=== PATIENT | male | born 1970 | race Caucasian/White ===

== ENCOUNTER 2020-06-21 01:00 | Inpatient (IN) | payer OTHER ==
[2020-06-20 23:45] VITALS: BP 132/90
[~2020-06-21] VITALS: Ht 188 cm; Wt 103.9 kg
[2020-06-21] VITALS: BP 132/90
[2020-06-21 04:01] VITALS: BP 131/92
[2020-06-21] MEDS: HYDROMORPHONE HCL/PF 2MG/ML CPJ IV PRN ×4 (04:55→22:37)
[2020-06-21] MEDS ORDERED: AMLO-375 MT (06:24)
[2020-06-21] MEDS ORDERED: ATOR10TA PO (06:24)
[2020-06-21] MEDS ORDERED: LEVO200T8 MT (06:24)
[2020-06-21 08:00] VITALS: BP 132/92
[2020-06-21] MEDS ORDERED: DOCUSATE SODIUM 250MG CAPSULE PO PRN (09:00)
[2020-06-21] MEDS: LEVOTHYROXINE SODIUM 200MCG TABLET PO SCH (09:24)
[2020-06-21] MEDS: AMLODIPINE 5MG TABLET PO SCH (09:25)
[2020-06-21] MEDS: ZINC SULFATE 220 MG ( 50 ) CAPSULE PO SCH (09:25)
[2020-06-21] MEDS: MULTIVITAMINS,THER W-MINERALS TABLET PO SCH (09:25)
[2020-06-21] MEDS: HYDROCODONE/ACETAMINOPHEN 10/325MG TABLET PO PRN ×2 (09:26→14:39)
[2020-06-21 11:53] LABS: HEMATOCRIT. 39.9 % (42.0-52.0); HEMOGLOBIN. 13.7 g/dL (14.0-18.0); MEAN CORPUSCULAR HEMOGLOBIN 30.7 pg (28.0-32.0); MEAN CORPUSCULAR VOLUME 89.4 fL (80.0-94.0); MEAN PLATELET VOLUME 8.4 fl (7.4-10.4); PLATELET 284 x1000/uL (130-400); RED BLOOD CELL COUNT 4.47 mill/uL (4.7-6.1); RED CELL DISTRIBUTION WIDTH 13.1 % (11.6-14.6)
[2020-06-21 12:00] VITALS: BP 140/84
[2020-06-21] MEDS: FAMOTIDINE 20MG TABLET PO SCH ×2 (12:01→18:09)
[2020-06-21 12:13] LABS: CHLORIDE 102 mEq/L (98-107)
[2020-06-21] MEDS ORDERED: CLONIDINE 0.1MG TABLET PO PRN (12:45)
[2020-06-21] MEDS ORDERED: NITROGLYCERIN 0.4MG TABLET SL SL PRN (12:45)
[2020-06-21] MEDS ORDERED: IPRATROPIUM/ALBUTEROL 0.5-3(2.5)MG/3ML NEB NEB PRN (12:45)
[2020-06-21] MEDS ORDERED: ENOXAPARIN 40MG/0.4ML SYR SUBCUT SCH (14:00)
[2020-06-21 16:00] VITALS: BP 142/94
[2020-06-21 18:28] LABS: PLATELET ESTIMATE NORMAL
[2020-06-21 20:00] VITALS: BP 137/72
[2020-06-21] MEDS ORDERED: ZOLPIDEM TARTRATE 5MG TABLET PO PRN (21:00)
[2020-06-21] MEDS: ASCORBIC ACID 500 MG TABLET PO SCH (21:25)
[2020-06-22] VITALS: BP 140/93
[2020-06-22] MEDS: HYDROCODONE/ACETAMINOPHEN 10/325MG TABLET PO PRN ×3 (01:17→18:57)
[2020-06-22] MEDS: HYDROMORPHONE HCL/PF 2MG/ML CPJ IV PRN ×5 (02:44→22:38)
[2020-06-22 04:00] VITALS: BP 152/85
[2020-06-22 06:44] LABS: HEMATOCRIT. 37.8 % (42.0-52.0); HEMOGLOBIN. 13.1 g/dL (14.0-18.0); MEAN CORPUSCULAR HEMOGLOBIN 30.9 pg (28.0-32.0); MEAN CORPUSCULAR VOLUME 89.2 fL (80.0-94.0); MEAN PLATELET VOLUME 8.2 fl (7.4-10.4); PLATELET 250 x1000/uL (130-400); RED BLOOD CELL COUNT 4.23 mill/uL (4.7-6.1); RED CELL DISTRIBUTION WIDTH 12.8 % (11.6-14.6)
[2020-06-22 07:07] LABS: CHLORIDE 100 mEq/L (98-107)
[2020-06-22 07:13] LABS: PHOSPHORUS 3.6 mg/dL (2.5-4.9)
[2020-06-22 08:00] VITALS: BP 142/92
[2020-06-22] MEDS: ATORVASTATIN CALCIUM 10MG TABLET PO SCH (08:06)
[2020-06-22] MEDS: FAMOTIDINE 20MG TABLET PO SCH ×2 (08:07→17:27)
[2020-06-22] MEDS: AMLODIPINE 5MG TABLET PO SCH (08:07)
[2020-06-22] MEDS: ZINC SULFATE 220 MG ( 50 ) CAPSULE PO SCH (08:07)
[2020-06-22] MEDS: MULTIVITAMINS,THER W-MINERALS TABLET PO SCH (08:08)
[2020-06-22] MEDS: LEVOTHYROXINE SODIUM 200MCG TABLET PO SCH (08:08)
[2020-06-22] MEDS: ASCORBIC ACID 500 MG TABLET PO SCH ×2 (08:08→21:54)
[2020-06-22] MEDS: DEXT 5%/0.45% NACL 1000ML 1,000 ML IV SCH (09:55)
[2020-06-22 14:11] LABS: PLATELET ESTIMATE NORMAL
[2020-06-22 20:00] VITALS: BP 141/87
[2020-06-22] MEDS: ACETAMINOPHEN 325MG TABLET PO PRN (22:38)
[2020-06-23] VITALS: BP 124/81
[2020-06-23] MEDS: HYDROCODONE/ACETAMINOPHEN 10/325MG TABLET PO PRN ×2 (00:41→06:43)
[2020-06-23 04:00] VITALS: BP 115/88
[2020-06-23] MEDS: HYDROMORPHONE HCL/PF 2MG/ML CPJ IV PRN ×4 (04:22→21:09)
[2020-06-23 08:00] VITALS: BP 144/98
[2020-06-23] MEDS: MULTIVITAMINS,THER W-MINERALS TABLET PO SCH (10:33)
[2020-06-23] MEDS: AMLODIPINE 5MG TABLET PO SCH (10:33)
[2020-06-23] MEDS: ASCORBIC ACID 500 MG TABLET PO SCH ×2 (10:33→20:53)
[2020-06-23] MEDS: ZINC SULFATE 220 MG ( 50 ) CAPSULE PO SCH (10:33)
[2020-06-23] MEDS: FAMOTIDINE 20MG TABLET PO SCH ×2 (10:33→16:17)
[2020-06-23 15:22] VITALS: BP 121/65
[2020-06-23] MEDS: LEVOTHYROXINE SODIUM 200MCG TABLET PO SCH (16:15)
[2020-06-23 20:00] VITALS: BP 120/81
[2020-06-23] MEDS: ACETAMINOPHEN 325MG TABLET PO PRN (21:08)
[2020-06-24] VITALS: BP 119/80
[2020-06-24] MEDS: HYDROCODONE/ACETAMINOPHEN 10/325MG TABLET PO PRN ×3 (00:18→22:45)
[2020-06-24 04:00] VITALS: BP 140/93
[2020-06-24] MEDS: HYDROMORPHONE HCL/PF 2MG/ML CPJ IV PRN ×3 (05:40→21:13)
[2020-06-24 08:00] VITALS: BP 122/87
[2020-06-24] MEDS ORDERED: LIDOCAINE HCL/EPINEPHRINE 1%-EPI 1:100,000 20 ML VIAL ONE (08:47)
[2020-06-24] MEDS ORDERED: BACITRACIN 50,000 UNITS/VIAL ONE (08:47)
[2020-06-24] MEDS ORDERED: VANCOMYCIN HCL 1 GM/VIAL ONE (08:47)
[2020-06-24] MEDS: AMLODIPINE 5MG TABLET PO SCH (09:03)
[2020-06-24] MEDS: LEVOTHYROXINE SODIUM 200MCG TABLET PO SCH (09:03)
[2020-06-24] MEDS: MULTIVITAMINS,THER W-MINERALS TABLET PO SCH (09:03)
[2020-06-24] MEDS: ATORVASTATIN CALCIUM 10MG TABLET PO SCH (09:03)
[2020-06-24] MEDS: FAMOTIDINE 20MG TABLET PO SCH ×2 (09:03→16:50)
[2020-06-24] MEDS: ZINC SULFATE 220 MG ( 50 ) CAPSULE PO SCH (09:04)
[2020-06-24] MEDS: DEXT 5%/0.45% NACL 1000ML 1,000 ML IV SCH (09:06)
[2020-06-24] MEDS: ASCORBIC ACID 500 MG TABLET PO SCH ×2 (09:11→22:45)
[2020-06-24] MEDS ORDERED: ROCURONIUM BROMIDE 10MG/ML VIAL 5ML IV ONE (09:14)
[2020-06-24] MEDS ORDERED: GLYCOPYRROLATE 0.2 MG/ML 2ML VIAL ONE (09:14)
[2020-06-24] MEDS ORDERED: SUCCINYLCHOLINE CHLORIDE 200MG/10ML IV ONE (09:14)
[2020-06-24] MEDS ORDERED: PROPOFOL 200MG/20ML VIAL IV ONE (09:14)
[2020-06-24] MEDS ORDERED: ONDANSETRON HCL 4MG/2ML INJ ONE (09:14)
[2020-06-24] MEDS ORDERED: FENTANYL CITRATE/PF 50MCG/ML 2ML VIAL ONE ×2 (09:14→13:14)
[2020-06-24] MEDS ORDERED: MIDAZOLAM HCL 2 MG/2 ML VIAL ONE (09:14)
[2020-06-24] MEDS ORDERED: EPHEDRINE SULFATE 50MG/ML VIAL ONE (09:14)
[2020-06-24] MEDS ORDERED: METOCLOPRAMIDE HCL 10MG/2ML VIAL ONE (09:14)
[2020-06-24] MEDS ORDERED: NEOSTIGMINE METHYLSULFATE 1MG/ML 10 ML VIAL ONE (09:14)
[2020-06-24] MEDS ORDERED: PHENYLEPHRINE HCL 10 MG/ML 1ML (IV VIAL) IV ONE ×2 (09:14→11:08)
[2020-06-24] MEDS ORDERED: CEFAZOLIN SODIUM 1000MG/VIAL ONE (09:14)
[2020-06-24] MEDS ORDERED: SODIUM CHLORIDE 0.9% 10ML VIAL ONE (09:14)
[2020-06-24] MEDS ORDERED: ALBUMIN HUMAN 12.5G/250ML (5%) IV ONE (11:09)
[2020-06-24] MEDS ORDERED: CEFAZOLIN 1000MG PREMIX 50 ML IV SCH (14:00)
[2020-06-24] MEDS ORDERED: ROPIVACAINE HCL 10MG/ML 20 ML VIAL EPI ONE (15:29)
[2020-06-24 16:00] VITALS: BP 106/70
[2020-06-24] MEDS: ERGOCALCIFEROL 50000UNITS CAPSULE PO SCH (17:46)
[2020-06-24] MEDS ORDERED: THROAT LOZENGES-BENZOCAINE/MENTH/CETYLPYRD CL LOZENGES MM PRN (18:00)
[2020-06-24 20:00] VITALS: BP 120/90
[2020-06-24] MEDS: CEFAZOLIN 1000MG PREMIX 50 ML IV SCH (21:10)
[2020-06-24 23:08] LABS: BASOPHILS % 0.4 % (0.0-2.0); EOSINOPHILS % 0.1 % (0.0-5.0); HEMATOCRIT. 32.6 % (42.0-52.0); HEMOGLOBIN. 11.4 g/dL (14.0-18.0); LYMPHOCYTES % 23.3 % (20.0-50.0); MEAN CORPUSCULAR HEMOGLOBIN 31.1 pg (28.0-32.0); MEAN CORPUSCULAR VOLUME 88.8 fL (80.0-94.0); MEAN PLATELET VOLUME 8.2 fl (7.4-10.4); NEUTROPHILS % 67.2 % (40.0-76.0); PLATELET 179 x1000/uL (130-400); RED BLOOD CELL COUNT 3.67 mill/uL (4.7-6.1); RED CELL DISTRIBUTION WIDTH 12.9 % (11.6-14.6)
[2020-06-24 23:11] LABS: CHLORIDE 106 mEq/L (98-107)
[2020-06-25] VITALS: BP 113/71
[2020-06-25] MEDS: HYDROMORPHONE HCL/PF 2MG/ML CPJ IV PRN ×6 (01:19→23:03)
[2020-06-25 04:00] VITALS: BP 126/79
[2020-06-25] MEDS: CEFAZOLIN 1000MG PREMIX 50 ML IV SCH ×3 (05:36→21:52)
[2020-06-25] MEDS: DEXT 5%/0.45% NACL 1000ML 1,000 ML IV SCH ×2 (07:01→17:50)
[2020-06-25] MEDS: HYDROCODONE/ACETAMINOPHEN 10/325MG TABLET PO PRN (07:01)
[2020-06-25 08:00] VITALS: BP 117/81
[2020-06-25] MEDS: FAMOTIDINE 20MG TABLET PO SCH ×2 (09:00→17:50)
[2020-06-25 09:04] LABS: BASOPHILS % 0.4 % (0.0-2.0); HEMATOCRIT. 34.7 % (42.0-52.0); HEMOGLOBIN. 11.9 g/dL (14.0-18.0); MEAN CORPUSCULAR HEMOGLOBIN 30.4 pg (28.0-32.0); MEAN CORPUSCULAR VOLUME 88.4 fL (80.0-94.0); MEAN PLATELET VOLUME 8.6 fl (7.4-10.4); MONOCYTES % 9.5 % (2.0-8.0); NEUTROPHILS % 64.1 % (40.0-76.0); PLATELET 188 x1000/uL (130-400); RED BLOOD CELL COUNT 3.92 mill/uL (4.7-6.1); RED CELL DISTRIBUTION WIDTH 12.8 % (11.6-14.6)
[2020-06-25 09:12] LABS: CHLORIDE 98 mEq/L (98-107)
[2020-06-25 09:33] LABS: CREATINE KINASE 1224 IU/L (39-308)
[2020-06-25] MEDS: ASCORBIC ACID 500 MG TABLET PO SCH ×2 (09:41→09:52)
[2020-06-25] MEDS: ZINC SULFATE 220 MG ( 50 ) CAPSULE PO SCH (09:41)
[2020-06-25] MEDS: LEVOTHYROXINE SODIUM 200MCG TABLET PO SCH (09:41)
[2020-06-25] MEDS: MULTIVITAMINS,THER W-MINERALS TABLET PO SCH (09:41)
[2020-06-25] MEDS: AMLODIPINE 5MG TABLET PO SCH (09:41)
[2020-06-25 16:00] VITALS: BP 141/90
[2020-06-25] MEDS: DOCUSATE SODIUM 100MG CAPSULE PO PRN (17:50)
[2020-06-25 20:00] VITALS: BP 137/84
[2020-06-25] MEDS: ACETAMINOPHEN 325MG TABLET PO PRN (22:04)
[2020-06-25] MEDS: MAGNESIUM/ALUMINUM HYDROXIDE/SIMETHICONE 30ML UDC PO PRN (23:03)
[2020-06-26] VITALS: BP 116/65
[2020-06-26] MEDS: DEXT 5%/0.45% NACL 1000ML 1,000 ML IV SCH ×3 (01:37→23:28)
[2020-06-26] MEDS: HYDROCODONE/ACETAMINOPHEN 10/325MG TABLET PO PRN ×3 (01:40→22:14)
[2020-06-26] MEDS: CEFAZOLIN 1000MG PREMIX 50 ML IV SCH ×3 (06:53→23:27)
[2020-06-26 07:55] VITALS: BP 117/74
[2020-06-26] MEDS: MULTIVITAMINS,THER W-MINERALS TABLET PO SCH (08:32)
[2020-06-26] MEDS: ASCORBIC ACID 500 MG TABLET PO SCH ×2 (08:32→22:13)
[2020-06-26] MEDS: ATORVASTATIN CALCIUM 10MG TABLET PO SCH (08:32)
[2020-06-26] MEDS: LEVOTHYROXINE SODIUM 200MCG TABLET PO SCH (08:32)
[2020-06-26] MEDS: ZINC SULFATE 220 MG ( 50 ) CAPSULE PO SCH (08:32)
[2020-06-26] MEDS: AMLODIPINE 5MG TABLET PO SCH (08:32)
[2020-06-26] MEDS: DOCUSATE SODIUM 100MG CAPSULE PO PRN (08:38)
[2020-06-26] MEDS: FAMOTIDINE 20MG TABLET PO SCH ×2 (10:13→17:28)
[2020-06-26 12:00] VITALS: BP 128/78
[2020-06-26] MEDS: ONDANSETRON HCL 4MG/2ML INJ IV PRN ×2 (12:27→18:18)
[2020-06-26 16:00] VITALS: BP 129/70
[2020-06-26] MEDS: MORPHINE SULFATE 4 MG/ML CPJ (NOT FOR IM USE) IV PRN (18:34)
[2020-06-26 20:14] VITALS: BP 124/81
[2020-06-26] MEDS: ACETAMINOPHEN 325MG TABLET PO PRN (22:13)
[2020-06-26 23:45] VITALS: BP 140/81
[2020-06-27 04:00] VITALS: BP 137/72
[2020-06-27] MEDS: ACETAMINOPHEN 325MG TABLET PO PRN ×3 (05:24→22:59)
[2020-06-27] MEDS: HYDROCODONE/ACETAMINOPHEN 10/325MG TABLET PO PRN ×3 (05:34→20:50)
[2020-06-27 08:00] VITALS: BP 134/85
[2020-06-27] MEDS: ASCORBIC ACID 500 MG TABLET PO SCH ×2 (08:59→20:56)
[2020-06-27] MEDS: LEVOTHYROXINE SODIUM 200MCG TABLET PO SCH (08:59)
[2020-06-27] MEDS: ZINC SULFATE 220 MG ( 50 ) CAPSULE PO SCH (08:59)
[2020-06-27] MEDS: MULTIVITAMINS,THER W-MINERALS TABLET PO SCH (08:59)
[2020-06-27] MEDS: DEXT 5%/0.45% NACL 1000ML 1,000 ML IV SCH ×2 (09:00→23:00)
[2020-06-27] MEDS: AMLODIPINE 5MG TABLET PO SCH (09:00)
[2020-06-27] MEDS: FAMOTIDINE 20MG TABLET PO SCH ×2 (09:00→17:37)
[2020-06-27 12:00] VITALS: BP 103/63
[2020-06-27] MEDS: ONDANSETRON HCL 4MG/2ML INJ IV PRN (12:25)
[2020-06-27] MEDS: MORPHINE SULFATE 4 MG/ML CPJ (NOT FOR IM USE) IV PRN ×2 (15:47→22:59)
[2020-06-27 16:00] VITALS: BP 122/72
[2020-06-27 20:00] VITALS: BP 107/71
[2020-06-27 22:50] VITALS: BP 112/70
[2020-06-28 04:00] VITALS: BP 100/62
[2020-06-28] MEDS: MORPHINE SULFATE 4 MG/ML CPJ (NOT FOR IM USE) IV PRN ×2 (05:16→16:28)
[2020-06-28] MEDS: ACETAMINOPHEN 325MG TABLET PO PRN ×4 (05:27→20:18)
[2020-06-28 08:00] VITALS: BP 124/80
[2020-06-28] MEDS: AMLODIPINE 5MG TABLET PO SCH (09:27)
[2020-06-28] MEDS: FAMOTIDINE 20MG TABLET PO SCH ×2 (09:28→16:28)
[2020-06-28] MEDS: MULTIVITAMINS,THER W-MINERALS TABLET PO SCH (09:28)
[2020-06-28] MEDS: ATORVASTATIN CALCIUM 10MG TABLET PO SCH (09:28)
[2020-06-28] MEDS: ASCORBIC ACID 500 MG TABLET PO SCH ×2 (09:28→20:18)
[2020-06-28] MEDS: LEVOTHYROXINE SODIUM 200MCG TABLET PO SCH (09:28)
[2020-06-28] MEDS: ZINC SULFATE 220 MG ( 50 ) CAPSULE PO SCH (09:29)
[2020-06-28] MEDS: HYDROCODONE/ACETAMINOPHEN 10/325MG TABLET PO PRN ×2 (09:54→20:24)
[2020-06-28] MEDS: ONDANSETRON HCL 4MG/2ML INJ IV PRN ×2 (09:55→16:28)
[2020-06-28 12:00] VITALS: BP 121/68
[2020-06-28 16:00] VITALS: BP 131/78
[2020-06-28 20:00] VITALS: BP 124/73
[2020-06-28] MEDS: GUAIFENESIN 200MG/10ML SUGAR FREE UDC PO PRN (20:17)
[2020-06-29] VITALS: BP 113/73
[2020-06-29] MEDS: MORPHINE SULFATE 2 MG/ML CPJ (NOT FOR IM USE) IV PRN ×3 (00:57→21:34)
[2020-06-29 04:00] VITALS: BP 101/74
[2020-06-29] MEDS: ONDANSETRON HCL 4MG/2ML INJ IV PRN ×2 (05:25→18:01)
[2020-06-29] MEDS: ACETAMINOPHEN 325MG TABLET PO PRN ×2 (05:26→21:26)
[2020-06-29 06:30] LABS: BASOPHILS % 0.4 % (0.0-2.0); HEMATOCRIT. 33.9 % (42.0-52.0); HEMOGLOBIN. 11.8 g/dL (14.0-18.0); LYMPHOCYTES % 44.2 % (20.0-50.0); MEAN CORPUSCULAR HEMOGLOBIN 30.4 pg (28.0-32.0); MEAN CORPUSCULAR VOLUME 87.6 fL (80.0-94.0); MEAN PLATELET VOLUME 8.1 fl (7.4-10.4); MONOCYTES % 5.7 % (2.0-8.0); NEUTROPHILS % 49.7 % (40.0-76.0); PLATELET 190 x1000/uL (130-400); RED BLOOD CELL COUNT 3.87 mill/uL (4.7-6.1); RED CELL DISTRIBUTION WIDTH 12.8 % (11.6-14.6)
[2020-06-29 06:43] LABS: CHLORIDE 99 mEq/L (98-107)
[2020-06-29 06:53] LABS: CREATINE KINASE 384 IU/L (39-308)
[2020-06-29 08:00] VITALS: BP 129/80
[2020-06-29] MEDS: HYDROCODONE/ACETAMINOPHEN 10/325MG TABLET PO PRN ×2 (10:14→18:01)
[2020-06-29] MEDS: ZINC SULFATE 220 MG ( 50 ) CAPSULE PO SCH (10:15)
[2020-06-29] MEDS: LEVOTHYROXINE SODIUM 200MCG TABLET PO SCH (10:15)
[2020-06-29] MEDS: MULTIVITAMINS,THER W-MINERALS TABLET PO SCH (10:15)
[2020-06-29] MEDS: AMLODIPINE 5MG TABLET PO SCH (10:15)
[2020-06-29] MEDS: FAMOTIDINE 20MG TABLET PO SCH ×2 (10:16→18:00)
[2020-06-29] MEDS: ASCORBIC ACID 500 MG TABLET PO SCH ×2 (10:16→21:19)
[2020-06-29 12:00] VITALS: BP 118/76
[2020-06-29 16:00] VITALS: BP 113/73
[2020-06-29 20:00] VITALS: BP 121/68
[2020-06-30] VITALS: BP 106/66
[2020-06-30] MEDS: HYDROCODONE/ACETAMINOPHEN 10/325MG TABLET PO PRN ×3 (00:07→18:13)
[2020-06-30 04:00] VITALS: BP 112/70
[2020-06-30] MEDS: MORPHINE SULFATE 2 MG/ML CPJ (NOT FOR IM USE) IV PRN ×3 (05:07→21:17)
[2020-06-30] MEDS: ACETAMINOPHEN 325MG TABLET PO PRN (05:20)
[2020-06-30 08:00] VITALS: BP 123/74
[2020-06-30] MEDS: ASCORBIC ACID 500 MG TABLET PO SCH ×2 (09:20→20:46)
[2020-06-30] MEDS: ZINC SULFATE 220 MG ( 50 ) CAPSULE PO SCH (09:20)
[2020-06-30] MEDS: FAMOTIDINE 20MG TABLET PO SCH ×2 (09:20→18:13)
[2020-06-30] MEDS: LEVOTHYROXINE SODIUM 200MCG TABLET PO SCH (09:20)
[2020-06-30] MEDS: AMLODIPINE 5MG TABLET PO SCH (09:20)
[2020-06-30] MEDS: ATORVASTATIN CALCIUM 10MG TABLET PO SCH (09:21)
[2020-06-30] MEDS: MULTIVITAMINS,THER W-MINERALS TABLET PO SCH (09:21)
[2020-06-30 12:00] VITALS: BP 114/76
[2020-06-30 16:00] VITALS: BP 132/79
[2020-06-30] MEDS: ONDANSETRON HCL 4MG/2ML INJ IV PRN (18:13)
[2020-07-01 00:30] VITALS: BP 115/74
[2020-07-01] MEDS: HYDROCODONE/ACETAMINOPHEN 10/325MG TABLET PO PRN (01:19)
[2020-07-01] MEDS: ACETAMINOPHEN 325MG TABLET PO PRN (01:19)
[2020-07-01 08:00] VITALS: BP 127/77
[2020-07-01] MEDS: ZINC SULFATE 220 MG ( 50 ) CAPSULE PO SCH (10:19)
[2020-07-01] MEDS: ERGOCALCIFEROL 50000UNITS CAPSULE PO SCH (10:19)
[2020-07-01] MEDS: ASCORBIC ACID 500 MG TABLET PO SCH ×2 (10:19→20:34)
[2020-07-01] MEDS: FAMOTIDINE 20MG TABLET PO SCH ×2 (10:19→20:34)
[2020-07-01] MEDS: LEVOTHYROXINE SODIUM 200MCG TABLET PO SCH (10:19)
[2020-07-01] MEDS: MULTIVITAMINS,THER W-MINERALS TABLET PO SCH (10:19)
[2020-07-01] MEDS: AMLODIPINE 5MG TABLET PO SCH (10:24)
[2020-07-01 12:00] VITALS: BP 128/76
[2020-07-01] MEDS: ONDANSETRON HCL 4MG/2ML INJ IV PRN ×2 (12:10→20:33)
[2020-07-01] MEDS: MAGNESIUM/ALUMINUM HYDROXIDE/SIMETHICONE 30ML UDC PO PRN (14:43)
[2020-07-01 16:00] VITALS: BP 113/81
[2020-07-02] VITALS: BP 120/75
[2020-07-02 07:36] LABS: BASOPHILS % 0.4 % (0.0-2.0); EOSINOPHILS % 0.1 % (0.0-5.0); HEMATOCRIT. 35.5 % (42.0-52.0); LYMPHOCYTES % 36.7 % (20.0-50.0); MEAN CORPUSCULAR VOLUME 88.5 fL (80.0-94.0); MEAN PLATELET VOLUME 7.3 fl (7.4-10.4); MONOCYTES % 9.6 % (2.0-8.0); NEUTROPHILS % 53.2 % (40.0-76.0); PLATELET 233 x1000/uL (130-400); RED BLOOD CELL COUNT 4.02 mill/uL (4.7-6.1)
[2020-07-02 07:47] LABS: CHLORIDE 102 mEq/L (98-107)
[2020-07-02 08:00] VITALS: BP 130/86
[2020-07-02 08:05] LABS: CREATINE KINASE 168 IU/L (39-308)
[2020-07-02] MEDS: LEVOTHYROXINE SODIUM 200MCG TABLET PO SCH (09:12)
[2020-07-02] MEDS: AMLODIPINE 5MG TABLET PO SCH (09:12)
[2020-07-02] MEDS: ZINC SULFATE 220 MG ( 50 ) CAPSULE PO SCH (09:12)
[2020-07-02] MEDS: FAMOTIDINE 20MG TABLET PO SCH ×2 (09:12→17:33)
[2020-07-02] MEDS: ATORVASTATIN CALCIUM 10MG TABLET PO SCH (09:12)
[2020-07-02] MEDS: ASCORBIC ACID 500 MG TABLET PO SCH ×2 (09:12→22:24)
[2020-07-02] MEDS: MULTIVITAMINS,THER W-MINERALS TABLET PO SCH (09:12)
[2020-07-02] MEDS: ONDANSETRON HCL 4MG/2ML INJ IV PRN ×2 (10:44→22:24)
[2020-07-02 12:00] VITALS: BP 116/77
[2020-07-02 16:00] VITALS: BP 117/78
[2020-07-02] MEDS: ACETAMINOPHEN 325MG TABLET PO PRN (22:25)
[2020-07-03] VITALS: BP 128/87
[2020-07-03 04:00] VITALS: BP 122/93
[2020-07-03] MEDS: ONDANSETRON HCL 4MG/2ML INJ IV PRN ×2 (07:14→16:15)
[2020-07-03 07:20] LABS: CHLORIDE 104 mEq/L (98-107)
[2020-07-03 08:00] VITALS: BP 122/61
[2020-07-03] MEDS: AMLODIPINE 5MG TABLET PO SCH (08:09)
[2020-07-03] MEDS: MULTIVITAMINS,THER W-MINERALS TABLET PO SCH (08:09)
[2020-07-03] MEDS: ZINC SULFATE 220 MG ( 50 ) CAPSULE PO SCH (08:09)
[2020-07-03] MEDS: LEVOTHYROXINE SODIUM 200MCG TABLET PO SCH (08:09)
[2020-07-03] MEDS: ASCORBIC ACID 500 MG TABLET PO SCH ×2 (08:09→22:51)
[2020-07-03] MEDS: FAMOTIDINE 20MG TABLET PO SCH ×2 (08:09→16:04)
[2020-07-03 10:41] LABS: AMYLASE 223 IU/L (25-115)
[2020-07-03 12:00] VITALS: BP 126/72
[2020-07-03] MEDS: SODIUM CHLORIDE 0.9% 1,000 ML IV SCH ×2 (13:36→22:50)
[2020-07-03 16:00] VITALS: BP 128/87
[2020-07-03] MEDS: MAGNESIUM/ALUMINUM HYDROXIDE/SIMETHICONE 30ML UDC PO PRN (16:15)
[2020-07-03 20:00] VITALS: BP 124/78
[2020-07-03] MEDS: TRAMADOL 50MG TABLET PO PRN (22:51)
[2020-07-03] MEDS: GUAIFENESIN 200MG/10ML SUGAR FREE UDC PO PRN (22:52)
[2020-07-04] VITALS (7 sets, daily range): BP systolic 110–149; BP diastolic 71–93
[2020-07-04] MEDS: MULTIVITAMINS,THER W-MINERALS TABLET PO SCH (09:12)
[2020-07-04] MEDS: LEVOTHYROXINE SODIUM 200MCG TABLET PO SCH (09:12)
[2020-07-04] MEDS: ZINC SULFATE 220 MG ( 50 ) CAPSULE PO SCH (09:12)
[2020-07-04] MEDS: ASCORBIC ACID 500 MG TABLET PO SCH ×2 (09:12→21:27)
[2020-07-04] MEDS: AMLODIPINE 5MG TABLET PO SCH (09:13)
[2020-07-04] MEDS: ATORVASTATIN CALCIUM 10MG TABLET PO SCH (09:13)
[2020-07-04] MEDS: FAMOTIDINE 20MG TABLET PO SCH ×2 (09:13→17:03)
[2020-07-04] MEDS: DEXAMETHASONE 6MG TABLET PO SCH (09:13)
[2020-07-04] MEDS: TRAMADOL 50MG TABLET PO PRN ×3 (09:19→23:13)
[2020-07-04 09:27] LABS: BASOPHILS % 0.5 % (0.0-2.0); EOSINOPHILS % 0.4 % (0.0-5.0); HEMATOCRIT. 36.2 % (42.0-52.0); HEMOGLOBIN. 12.3 g/dL (14.0-18.0); LYMPHOCYTES % 27.2 % (20.0-50.0); MEAN CORPUSCULAR HEMOGLOBIN 30.1 pg (28.0-32.0); MEAN CORPUSCULAR VOLUME 88.3 fL (80.0-94.0); MEAN PLATELET VOLUME 7.7 fl (7.4-10.4); MONOCYTES % 10.2 % (2.0-8.0); NEUTROPHILS % 61.7 % (40.0-76.0); PLATELET 281 x1000/uL (130-400); RED CELL DISTRIBUTION WIDTH 13.1 % (11.6-14.6)
[2020-07-04 09:33] LABS: CHLORIDE 105 mEq/L (98-107)
[2020-07-04 09:39] LABS: AMYLASE 209 IU/L (25-115); PHOSPHORUS 2.8 mg/dL (2.5-4.9)
[2020-07-04] MEDS: ACETAMINOPHEN 325MG TABLET PO PRN (21:27)
[2020-07-04] MEDS: GUAIFENESIN 200MG/10ML SUGAR FREE UDC PO PRN (21:27)
[2020-07-05] VITALS: BP 131/82
[2020-07-05 04:00] VITALS: BP 114/79
[2020-07-05] MEDS: TRAMADOL 50MG TABLET PO PRN ×3 (06:23→22:48)
[2020-07-05 07:32] LABS: CHLORIDE 104 mEq/L (98-107)
[2020-07-05 08:00] VITALS: BP 130/88
[2020-07-05] MEDS: ZINC SULFATE 220 MG ( 50 ) CAPSULE PO SCH (08:54)
[2020-07-05] MEDS: MULTIVITAMINS,THER W-MINERALS TABLET PO SCH (08:54)
[2020-07-05] MEDS: FAMOTIDINE 20MG TABLET PO SCH ×2 (08:54→16:42)
[2020-07-05] MEDS: LEVOTHYROXINE SODIUM 200MCG TABLET PO SCH (08:54)
[2020-07-05] MEDS: ASCORBIC ACID 500 MG TABLET PO SCH ×2 (08:54→20:48)
[2020-07-05] MEDS: DEXAMETHASONE 6MG TABLET PO SCH (08:55)
[2020-07-05] MEDS: AMLODIPINE 5MG TABLET PO SCH (08:55)
[2020-07-05 12:00] VITALS: BP 117/79
[2020-07-05 16:00] VITALS: BP 136/83
[2020-07-05 20:00] VITALS: BP 138/90
[2020-07-06] VITALS: BP 128/83
[2020-07-06 04:00] VITALS: BP 136/83
[2020-07-06] MEDS: TRAMADOL 50MG TABLET PO PRN (08:27)
[2020-07-06] MEDS: LEVOTHYROXINE SODIUM 200MCG TABLET PO SCH (08:27)
[2020-07-06 08:30] VITALS: BP 130/88
[2020-07-06] MEDS: FAMOTIDINE 20MG TABLET PO SCH (09:54)
[2020-07-06] MEDS: ZINC SULFATE 220 MG ( 50 ) CAPSULE PO SCH (09:55)
[2020-07-06] MEDS: MULTIVITAMINS,THER W-MINERALS TABLET PO SCH (09:55)
[2020-07-06] MEDS: DEXAMETHASONE 6MG TABLET PO SCH (09:55)
[2020-07-06] MEDS: ASCORBIC ACID 500 MG TABLET PO SCH (09:55)
[2020-07-06] MEDS: ATORVASTATIN CALCIUM 10MG TABLET PO SCH (09:59)
[2020-07-06] MEDS: AMLODIPINE 5MG TABLET PO SCH (09:59)
[2020-07-06 11:47] VITALS: BP 136/86
== END 2020-07-06 12:30 | disposition home or self-care (01) | DRG 853 ==
LOC: 6EST 01:00 → 8WST 06-22 22:25
PROVIDERS: ADMIT Internal Medicine; ATTEND Internal Medicine
PROC: 0PSD04Z Reposition Left Humeral Head with Internal Fixation Device, Open Approach (ICD-10-PCS; principal; 2020-06-27)
DX: A41.89 Other specified sepsis (principal); U07.1 COVID-19; J12.82 Pneumonia due to coronavirus disease 2019; K85.90 Acute pancreatitis without necrosis or infection, unspecified; J96.00 Acute respiratory failure, unspecified whether with hypoxia or hypercapnia; S42.202A Unspecified fracture of upper end of left humerus, initial encounter for closed fracture; D64.9 Anemia, unspecified; E03.9 Hypothyroidism, unspecified; E66.9 Obesity, unspecified; E78.00 Pure hypercholesterolemia, unspecified; I10 Essential (primary) hypertension; R03.0 Elevated blood-pressure reading, without diagnosis of hypertension; E78.5 Hyperlipidemia, unspecified; S43.006A Unspecified dislocation of unspecified shoulder joint, initial encounter; R74.01 Elevation of levels of liver transaminase levels; W18.39XA Other fall on same level, initial encounter; Z68.29 Body mass index [BMI] 29.0-29.9, adult; Y93.89 Activity, other specified; Y92.89 Other specified places as the place of occurrence of the external cause; Y99.8 Other external cause status
CPT/HCPCS: 36415; 71045; 73030; 73060; 74018; 76000; 80048; 80053; 82150; 82550; 82728; 83735; 84100; 84145; 84443; 85025; 85379; 86140; 87426; 87635; 93005; 93970; J0330; J0690; J1170; J1650; J2250; J2270; J2370; J2405; J2704; J2710; J2765; J2795; J3010; J3370; J3490; J7030; P9041